=== PATIENT | male | born 1985 | race Caucasian/White ===

== ENCOUNTER 2020-02-05 14:24 | Inpatient (IN) | payer OTHER ==
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
[2020-02-05 15:22] VITALS: BMI 21.7
--- NOTE | 2020-02-05 16:47 | HP ---
"COWS - Scale Resting Pulse: 1= [place] 81-100 Sweatin=Flushed/Facial Moisture Restless Observation: 1= Difficult to Sit Still Pupil Size: 1= Pupils >than Normal Bone or Joint Aches: 2= Severe Diffuse Aches Runny Nose/ Eye Tearin= Runny Nose/Eyes GI Upset > 30mins: 2= Nausea/Diarrhea Tremor Observation: 1= Tremor [place], Not Seen Yawning Observation: 0= None Anxiety or Irritability: 2=Irritable/Anxious Goose Flesh Skin: 0=Smooth Skin COWS Score: 14 CIWA Score Nausea/Vomitin-Mild Nausea/No Vomiting Muscle Tremors: None Anxiety: 4-Mod. Anxious/Guarded Agitation: 4-Moderately Restless Paroxysmal Sweats: 1-Minimal Palms Moist Orientation: 0-Oriented Tacttile Disturbances: 0-None Auditory Disturbances: 2-Mild Harshness/Frighten Visual Disturbances: 2-Mild Sensitivity Headache: 3-Moderate CIWA-Ar Total Score: 17 - Admission Criteria OASAS Guidelines: Admission for Medically Managed Detox: Requires at least one of the followin. CIWA greater than 12 2. Seizures within the past 24 hours 3. Delirium tremens within the past 24 hours 4. Hallucinations within the past 24 hours 5. Acute intervention needed for co occurring medical disorder 6. Acute intervention needed for co occurring psychiatric disorder 7. Severe withdrawal that cannot be handled at a lower level of care (continued vomiting, continued diarrhea, abnormal vital signs) requiring intravenous medication and/or fluids 8. Admission ROS [facility] Allergies/Adverse Reactions: Allergies Allergy/AdvReac Type Severity Reaction Status Date / Time chlordiazepoxide Allergy Verified 02/05/20 18:00 [From Librium] Penicillins Allergy Verified 02/05/20 17:59 History of Present Illness: This report was requested by: Yasmin Loya | Reference #: [id number] Others' Prescriptions Patient Name: Anton Colunga Date: 1985 Address: [address] [place] [id number] Sex: Male Rx Written Rx Dispensed Drug Quantity Days Supply Prescriber Name Payment Method Dispenser 06/11/2019 06/11/2019 lorazepam 1 mg tablet 16 4 [facility] Patient Name: Anton Colunga Date: 1985 Address: [address] [place] [id number] Sex: Male Rx Written Rx Dispensed Drug Quantity Days Supply Prescriber Name Payment Method Dispenser 07/08/2019 07/11/2019 buprenorphine-naloxone 8-2 mg sl film 20 10 Mala Pedraza NP On License Of [facility] Patient Name: Anton Colunga Date: 1985 Address: [address] [place] [address] Sex: Male Rx Written Rx Dispensed Drug Quantity Days Supply Prescriber Name Payment Method Dispenser 01/16/2020 01/16/2020 buprenorphine-naloxone 8-2 mg sl film 14 14 Sai Marcum MD Medicaid [id number] 05/31/2019 06/01/2019 buprenorphine-naloxone 8-2 mg sl film 60 30 Peyton Barrios C Medicaid [facility] #[id number] 04/04/2019 04/07/2019 buprenorphine-naloxone 8-2 mg sl film 60 30 Violette Hamilton Medicaid [facility] #[id number] 02/27/2019 02/28/2019 buprenorphine-naloxone 8-2 mg sl film 60 30 Scar Lindsay Medicaid [facility] #[id number] Patient Name: Anton Colunga Date: 1985 Address: [place] [address] Sex: Male Rx Written Rx Dispensed Drug Quantity Days Supply Prescriber Name Payment Method Dispenser 08/21/2019 08/21/2019 buprenorphine-naloxone 4-1 mg sl film 30 30 Mala Pedraza NP Medicaid [facility] 08/21/2019 08/21/2019 buprenorphine-naloxone 8-2 mg sl film 30 30 Mala Pedraza NP [facility] 07/18/2019 07/18/2019 buprenorphine-naloxone 8-2 mg sl film 60 30 Vj Richardson MD Medicaid [facility] 34 y.o. male requesting detox from heroin use , reports detox [facility] 1 mo ago ( [facility] ) , prior to which he was in [facility] x 3 mo until September 2019 , sober until November 2019 , relapsed w/ work . heroin iv 1 bundle /day IV in UE , no abscess , latest use was yesterday . heroin use since age 24 , longest sobriety Jun - November 2019 . OD x once 4 yrs ago , has Narcan at home . xanax - 3-5 mg /d since 30 , daily use no seizures , latest use yesterday alcohol 1 pint daily x 3 years , denies seizures / blackouts , latest use yesterday , has had a fall in the past , no injuries . denies other illicits tobacco - 1 ppd requesting nrt w/ gum allergies : PCN , LIBRIUM ( RASH ) PMHX asthma respiclick ( has his own ) PSHx : c-sp , orif r wrist , r ankle , r vth finger , tonsillectomy , eric inguinal hernia PSych : depression on effexor Exam Limitations: Clinical Condition - Review of Systems Constitutional: Loss of Appetite EENT: reports: Other (s/p fall [address] [facility] no frx per pt . r eye hit on bathroom stall ( slip an dfall on wet floor )) Respiratory: reports: No Symptoms reported Cardiac: reports: No Symptoms Reported GI: reports: Diarrhea, Nausea, Poor Appetite, Abdominal cramping : reports: No Symptoms Reported Musculoskeletal: reports: Back Pain, Muscle Pain, Neck Pain Integumentary: reports: See HPI, Bruising (R side of face), Other (IV use) Neuro: reports: Headache Endocrine: reports: No Symptoms Reported Hematology: reports: No Symptoms Reported Psychiatric: reports: Orientated x3, Agitated, Anxious Patient History - Smoking Cessation Smoking history: Current every day smoker Have you smoked in the past 12 months: Yes Hx Chewing Tobacco Use: No Initiated information on smoking cessation: Yes 'Breaking Loose' booklet given: 02/05/20 - Substances abused Heroin Substance route: Injection Frequency: Daily Amount used: 10BAGS Age of first use: 24 Date of last use: 02/04/20 Alprazolam (Xanax) Substance route: Oral Frequency: Daily Amount used: 5MG Age of first use: 27 Date of last use: 02/04/20 Admission Physical Exam S - Vital Signs Vital Signs: Vital Signs - 24 hr 02/05/20 15:21 Temperature 98 F Pulse Rate 98 H Respiratory 18 Rate Blood Pressure 116/79 - Physical General Appearance: Yes: Severe Distress, Thin, Tremorous, Irritable, Anxious HEENTM: Yes: EOMI, Hearing grossly Normal, Normocephalic, Normal Voice, Other (right periorbital ecchymosis , right eyebrow w/ sutures , right conjunctival hemorrhage) Respiratory: Yes: Chest Non-Tender, Lungs Clear, Normal Breath Sounds, No Respiratory Distress, No Accessory Muscle Use Neck: Yes: No masses,lesions,Nodules, Trachea in good position Cardiology: Yes: Regular Rhythm, Regular Rate, S1, S2, Tachycardia Abdominal: Yes: Non Tender, Flat, Soft Back: Yes: Normal Inspection Musculoskeletal: Yes: Gait Steady Extremities: Yes: Normal Inspection, Normal Range of Motion, Non-Tender, Tremors Neurological: Yes: Fully Oriented, Alert, Motor Strength 5/5, Depressed Affect Integumentary: Yes: Warm, Track [place] (eric hands , ecchymosis R periorbital) - Diagnostic (1) Opioid dependence Current Visit: Yes Status: Chronic Qualifiers: Substance use status: in withdrawal Qualified Code(s): F11.23 - Opioid dependence with withdrawal (2) Sedative, hypnotic or anxiolytic abuse Current Visit: Yes Status: Chronic (3) Alcohol use disorder Current Visit: Yes Status: Chronic (4) Nicotine dependence Current Visit: Yes Status: Chronic Qualifiers: Nicotine product type: cigarettes Breathalyzer - Breathalyzer Breathalyzer: 0 Urine Drug Screen - Test Device Lot number: [id number] Expiration date: 09/30/21 - Control Is test valid?: Yes - Results Drug screen NEGATIVE: No Urine drug screen results: FEN-Fentanyl, MOP-Opiates, BZO-Benzodiazepines Inpatient Rehab Admission - Rehab Decision to Admit Inpatient rehab admission?: No"
[2020-02-05] MEDS ORDERED: MENTHOL/PHENOL 1 EACH UD MM PRN (17:51)
[2020-02-05] MEDS ORDERED: hydrOXYzine PAMOATE 25 MG CAPSULE (FP) PO PRN (17:51)
[2020-02-05] MEDS ORDERED: MAG HYDROX/AL HYDROX/SIMETH 30 ML UNIT-DOSE CUP PO PRN (17:51)
[2020-02-05] MEDS ORDERED: MAGNESIUM HYDROX 2400MG/30ML ORAL SUSPENSION 30 ML CUP PO PRN (17:51)
[2020-02-05] MEDS ORDERED: ACETAMINOPHEN 325 MG TABLET (FP) PO PRN ×2 (17:51)
[2020-02-05] MEDS ORDERED: BISMUTH SUBSALICYLATE 524 MG/30 ML UD PO PRN (17:51)
[2020-02-05] MEDS ORDERED: NICOTINE POLACRILEX 2 MG GUM BUC PRN (17:51)
[2020-02-05] MEDS ORDERED: METHOCARBAMOL 500 MG TABLET PO PRN (17:51)
[2020-02-05] MEDS ORDERED: MAGNESIUM CITRATE 300 ML BOTTLE PO PRN (17:51)
[2020-02-05] MEDS ORDERED: IBUPROFEN 400 MG TABLET (FP) PO PRN (17:51)
[2020-02-05] MEDS ORDERED: chlordiazePOXIDE HCL 25 MG CAPSULE PO ONE (17:56)
[2020-02-05] MEDS ORDERED: chlordiazePOXIDE HCL 25 MG CAPSULE PO PRN (17:56)
[2020-02-05] MEDS ORDERED: diazePAM 5 MG TABLET PO PRN (18:03)
[2020-02-05] MEDS ORDERED: ALBUTEROL SO4 HFA INHALER IH PRN (18:09)
[2020-02-05] MEDS ORDERED: METHADONE HCL 10 MG TABLET (FOR DETOX USE ONLY) PO ONE (18:15)
[2020-02-05] MEDS ORDERED: diazePAM 5 MG TABLET PO ONE (18:15)
[2020-02-05] MEDS: MELATONIN 5 MG TABLETS PO SCH (21:49)
[2020-02-05] MEDS: GABAPENTIN 300 MG CAPSULE PO SCH (21:49)
[2020-02-05] MEDS: diazePAM 5 MG TABLET PO SCH (21:49)
[2020-02-05] MEDS: THIAMINE HCL 100 MG TABLET (FP) PO SCH (21:49)
[2020-02-05] MEDS ORDERED: chlordiazePOXIDE HCL 25 MG CAPSULE PO SCH (23:00)
[2020-02-06] MEDS: GABAPENTIN 300 MG CAPSULE PO SCH ×3 (06:17→21:36)
[2020-02-06] MEDS ORDERED: METHADONE HCL 10 MG TABLET (FOR DETOX USE ONLY) ONE (08:43)
[2020-02-06] MEDS ORDERED: METHADONE HCL 5 MG TABLET (FOR DETOX USE ONLY) ONE (08:43)
[2020-02-06] MEDS ORDERED: METHADONE (DETOX) 20 MG, METHADONE (DETOX) 5 MG PO ONE (10:00)
[2020-02-06] MEDS: PRENATAL VITAMINS W/ FOLIC ACID TABLET (FP) PO SCH (10:09)
[2020-02-06] MEDS: diazePAM 5 MG TABLET PO SCH ×4 (10:09→21:36)
[2020-02-06 11:41] LABS: HEMATOCRIT 39.1 % (35.4-49); HEMOGLOBIN 12.9 GM/dL (11.7-16.9); MCH 29.3 pg (25.7-33.7); MCHC 33.1 g/dl (32.0-35.9); MEAN CELL VOLUME 88.5 fl (80-96); MEAN PLT VOLUME 9.2 fl (7.5-11.1); PLATELET COUNT 297 K/MM3 (134-434); RBC 4.42 M/mm3 (4.00-5.60); RDW 13.9 % (11.9-15.9); WHITE BLOOD COUNT 4.2 K/mm3 (4.0-10.0)
[2020-02-06 11:46] LABS: ALBUMIN 3.4 g/dl (3.4-5.0); BLOOD UREA NITROGEN 16.5 mg/dL (7-18); CALCIUM 8.8 mg/dL (8.5-10.1); POTASSIUM 4.3 mmol/L (3.5-5.1)
[2020-02-06 11:49] LABS: BILIRUBIN,TOTAL 0.6 mg/dL (0.2-1); CREATININE 0.9 mg/dL (0.55-1.3); TOT PROT 6.6 g/dl (6.4-8.2)
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
--- NOTE | 2020-02-06 13:32 | PN ---
[facility] CIWA - CIWA Score Nausea/Vomitin-No Nausea/No Vomiting Muscle Tremors: 3 Anxiety: 2 Agitation: 2 Paroxysmal Sweats: 3 Orientation: 0-Oriented Tacttile Disturbances: 0-None Auditory Disturbances: 0-None Visual Disturbances: 0-None Headache: 0-None Present CIWA-Ar Total Score: 10 BHS COWS - Scale Resting Pulse: 1= [place] 81-100 Sweatin= Chills/Flushing Restless Observation: 1= Difficult to Sit Still Pupil Size: 0= Normal to Room Light Bone or Joint Aches: 1= Mild Discomfort Runny Nose/ Eye Tearin= Nasal Congestion GI Upset > 30mins: 0= None Tremor Observation of Outstretched Hands: 1= Tremor [place], Not Seen Yawning Observation: 2= >3x During Session Anxiety or Irritability: 2=Irritable/Anxious Goose Flesh Skin: 0=Smooth Skin COWS Score: 10 S Progress Note (SOAP) Subjective: sweats shakes body aches restless interrupted sleep Objective: 02/06/20 13:30 Vital Signs Temperature 97.2 F L 02/06/20 09:27 Pulse Rate 83 02/06/20 09:27 Respiratory Rate 18 02/06/20 09:27 Blood Pressure 119/67 02/06/20 09:27 O2 Sat by Pulse Oximetry (%) 100 02/06/20 09:27 Laboratory Tests 02/06/20 02/06/20 02/06/20 08:00 08:00 08:00 WBC 4.2 RBC 4.42 Hgb 12.9 Hct 39.1 MCV 88.5 MCH 29.3 MCHC 33.1 RDW 13.9 Plt Count 297 MPV 9.2 Sodium 138 Potassium 4.3 Chloride 105 Carbon Dioxide 28 Anion Gap 6 L BUN 16.5 Creatinine 0.9 Est GFR (CKD-EPI)AfAm 130.52 Est GFR (CKD-EPI)NonAf 112.62 Random Glucose 88 Calcium 8.8 Total Bilirubin 0.6 AST 11 L ALT 13 Alkaline Phosphatase 64 Total Protein 6.6 Albumin 3.4 Syphilis Serology Non-reactive aaox3 ambulating no acute distress Assessment: 02/06/20 13:31 withdrawals right eye bruising around the emir-orbital and stitches to right eyebrow noted. pt state he had a fall a week ago and this was the result. Pt is able to see no blurred vision, no eyeball pain. Plan: continue detox increase fluids
[2020-02-06] MEDS: VENLAFAXINE HCL 150 MG E.R. CAPSULE PO SCH (14:23)
--- NOTE | 2020-02-06 15:47 | EKG ---
Test Reason : Blood Pressure : / mmHG Vent. Rate : 073 BPM Atrial Rate : 073 BPM P-R Int : 108 ms QRS Dur : 088 ms QT Int : 364 ms P-R-T Axes : 070 080 071 degrees QTc Int : 401 ms SINUS RHYTHM WITH SHORT VA OTHERWISE NORMAL ECG NO PREVIOUS ECGS AVAILABLE Confirmed by LUCERO PRIEST, ANIBAL ([id number]) on 02/06/2020 3:46:57 PM Referred By: Confirmed By:ANIBAL BARKER MD
[2020-02-06] MEDS: THIAMINE HCL 100 MG TABLET (FP) PO SCH (21:36)
[2020-02-06] MEDS: MELATONIN 5 MG TABLETS PO SCH (21:37)
[2020-02-07] MEDS ORDERED: chlordiazePOXIDE HCL 25 MG CAPSULE PO SCH (05:00)
[2020-02-07] MEDS: GABAPENTIN 300 MG CAPSULE PO SCH ×3 (05:34→22:16)
[2020-02-07] MEDS: diazePAM 5 MG TABLET PO SCH ×3 (05:35→22:16)
[2020-02-07] MEDS ORDERED: METHADONE HCL 10 MG TABLET (FOR DETOX USE ONLY) PO ONE (10:00)
[2020-02-07] MEDS: PRENATAL VITAMINS W/ FOLIC ACID TABLET (FP) PO SCH (10:56)
[2020-02-07] MEDS: VENLAFAXINE HCL 150 MG E.R. CAPSULE PO SCH (10:56)
[2020-02-07] MEDS: NICOTINE 21 MG/24 HOURS TOPICAL PATCH TD SCH (11:18)
--- NOTE | 2020-02-07 15:19 | PN ---
[facility] CIWA - CIWA Score Nausea/Vomitin-No Nausea/No Vomiting Muscle Tremors: None Anxiety: 4-Mod. Anxious/Guarded Agitation: 3 Paroxysmal Sweats: 2 Orientation: 0-Oriented Tacttile Disturbances: 2-Mild Itch/Numbness/Burn Auditory Disturbances: 0-None Visual Disturbances: 0-None Headache: 0-None Present CIWA-Ar Total Score: 11 S COWS - Scale Resting Pulse: 0= [place] 80 or Below Sweatin= Chills/Flushing Restless Observation: 1= Difficult to Sit Still Pupil Size: 0= Normal to Room Light Bone or Joint Aches: 2= Severe Diffuse Aches Runny Nose/ Eye Tearin= None GI Upset > 30mins: 0= None Tremor Observation of Outstretched Hands: 0= None Yawning Observation: 1= 1-2x During Session Anxiety or Irritability: 2=Irritable/Anxious Goose Flesh Skin: 0=Smooth Skin COWS Score: 7 S Progress Note (SOAP) Subjective: Sweating, Anxious, Body Aches. Objective: Patient A & O X 3, Observed Ambulating on Detox Unit Unassisted. In No Acute Distress. 02/07/20 15:18 Vital Signs Temperature 97.1 F L 02/07/20 12:43 Pulse Rate 63 02/07/20 12:43 Respiratory Rate 16 02/07/20 12:43 Blood Pressure 147/100 02/07/20 12:43 O2 Sat by Pulse Oximetry (%) 98 02/07/20 12:43 Laboratory Tests 02/05/20 02/06/20 02/06/20 18:30 08:00 08:00 WBC 4.2 RBC 4.42 Hgb 12.9 Hct 39.1 MCV 88.5 MCH 29.3 MCHC 33.1 RDW 13.9 Plt Count 297 MPV 9.2 Sodium Potassium Chloride Carbon Dioxide Anion Gap BUN Creatinine Est GFR (CKD-EPI)AfAm Est GFR (CKD-EPI)NonAf Random Glucose Calcium Total Bilirubin AST ALT Alkaline Phosphatase Total Protein Albumin Syphilis Serology Non-reactive COVID-19 (JASSON) Not detected 02/06/20 08:00 WBC RBC Hgb Hct MCV MCH MCHC RDW Plt Count MPV Sodium 138 Potassium 4.3 Chloride 105 Carbon Dioxide 28 Anion Gap 6 L BUN 16.5 Creatinine 0.9 Est GFR (CKD-EPI)AfAm 130.52 Est GFR (CKD-EPI)NonAf 112.62 Random Glucose 88 Calcium 8.8 Total Bilirubin 0.6 AST 11 L ALT 13 Alkaline Phosphatase 64 Total Protein 6.6 Albumin 3.4 Syphilis Serology COVID-19 (JASSON) Lab Results noted. Assessment: 02/07/20 15:19 WITHDRAWAL SYMPTOMS. Plan: Continue Detox.
[2020-02-07] MEDS: MELATONIN 5 MG TABLETS PO SCH (22:16)
[2020-02-07] MEDS: THIAMINE HCL 100 MG TABLET (FP) PO SCH (22:16)
[2020-02-08] MEDS ORDERED: chlordiazePOXIDE HCL 10 MG CAPSULE PO PRN
[2020-02-08] MEDS ORDERED: chlordiazePOXIDE HCL 10 MG CAPSULE PO SCH (05:00)
[2020-02-08] MEDS: diazePAM 5 MG TABLET PO SCH ×2 (05:56→17:11)
[2020-02-08] MEDS: GABAPENTIN 300 MG CAPSULE PO SCH ×3 (05:56→22:42)
[2020-02-08] MEDS ORDERED: METHADONE HCL 10 MG TABLET (FOR DETOX USE ONLY) ONE (09:57)
[2020-02-08] MEDS ORDERED: METHADONE HCL 5 MG TABLET (FOR DETOX USE ONLY) ONE (09:57)
[2020-02-08] MEDS ORDERED: METHADONE (DETOX) 10 MG, METHADONE (DETOX) 5 MG PO ONE (10:00)
[2020-02-08] MEDS: PRENATAL VITAMINS W/ FOLIC ACID TABLET (FP) PO SCH (10:58)
[2020-02-08] MEDS: VENLAFAXINE HCL 150 MG E.R. CAPSULE PO SCH (10:58)
[2020-02-08] MEDS: NICOTINE 21 MG/24 HOURS TOPICAL PATCH TD SCH (10:59)
--- NOTE | 2020-02-08 16:42 | PN ---
[facility] CIWA - CIWA Score Nausea/Vomitin-No Nausea/No Vomiting Muscle Tremors: 1-None Visible, but [place] Anxiety: 2 Agitation: 2 Paroxysmal Sweats: 2 Orientation: 0-Oriented Tacttile Disturbances: 0-None Auditory Disturbances: 0-None Visual Disturbances: 0-None Headache: 0-None Present CIWA-Ar Total Score: 7 BHS COWS - Scale Resting Pulse: 0= [place] 80 or Below Sweatin= Chills/Flushing Restless Observation: 0= Sits Still Pupil Size: 0= Normal to Room Light Bone or Joint Aches: 1= Mild Discomfort Runny Nose/ Eye Tearin= Nasal Congestion GI Upset > 30mins: 1= Stomach Cramp Tremor Observation of Outstretched Hands: 1= Tremor [place], Not Seen Yawning Observation: 0= None Anxiety or Irritability: 2=Irritable/Anxious Goose Flesh Skin: 0=Smooth Skin COWS Score: 7 S Progress Note (SOAP) Subjective: Chills, stomachache. Patient noted with redness and blood shot red eye along with sutures in right eyebrow stating he was high on drugs and fell. He reports having workup including CT scan of head/face at [facility] in and the scans didn't show any fx/injury. Also had sutures to right eyebrow placed either on 01/28 or 01/29 as per patient. Objective: 02/08/20 16:43 Last Vital Signs Temp Pulse Resp BP Pulse Ox 97.2 F L 67 18 116/62 97 02/08/20 12:58 02/08/20 12:58 02/08/20 12:58 02/08/20 12:58 02/08/20 12:58 ROS: denies any vision problems Face: Eyes: periorbital erythema under eyes sutures intact to right eyebrow right scleral erythema/blood shot to right inner canthus of eye, no drainage or discharge noted Laboratory Tests 02/05/20 02/06/20 02/06/20 18:30 08:00 08:00 WBC 4.2 RBC 4.42 Hgb 12.9 Hct 39.1 MCV 88.5 MCH 29.3 MCHC 33.1 RDW 13.9 Plt Count 297 MPV 9.2 Sodium Potassium Chloride Carbon Dioxide Anion Gap BUN Creatinine Est GFR (CKD-EPI)AfAm Est GFR (CKD-EPI)NonAf Random Glucose Calcium Total Bilirubin AST ALT Alkaline Phosphatase Total Protein Albumin Syphilis Serology Non-reactive COVID-19 (JASSON) Not detected 02/06/20 08:00 WBC RBC Hgb Hct MCV MCH MCHC RDW Plt Count MPV Sodium 138 Potassium 4.3 Chloride 105 Carbon Dioxide 28 Anion Gap 6 L BUN 16.5 Creatinine 0.9 Est GFR (CKD-EPI)AfAm 130.52 Est GFR (CKD-EPI)NonAf 112.62 Random Glucose 88 Calcium 8.8 Total Bilirubin 0.6 AST 11 L ALT 13 Alkaline Phosphatase 64 Total Protein 6.6 Albumin 3.4 Syphilis Serology COVID-19 (JASSON) Labs reviewed Assessment: 02/08/20 16:45 Withdrawal sxs Noted with right corneal abrasion and sutures to right eyebrow Plan: Continue detox Encourage PO water hydration Right corneal abrasion: start cipro ophthalmic soln 0.3% q6hr while awake x 7 days, instructed to follow up with PCP and Anode Adjuster post discharge Sutures to right eyebrow: needs removal tomorrow or CELINE
[2020-02-08] MEDS: MELATONIN 5 MG TABLETS PO SCH (22:42)
[2020-02-08] MEDS: CIPROFLOXACIN HCL 0.3% OPHTH 2.5ML BOTTLE OD SCH (22:42)
[2020-02-08] MEDS: THIAMINE HCL 100 MG TABLET (FP) PO SCH (22:42)
[2020-02-09] MEDS ORDERED: chlordiazePOXIDE HCL 10 MG CAPSULE PO SCH (05:00)
[2020-02-09 05:46] VITALS: BP 104/62; PULSE 64; TEMP 97.5
[2020-02-09] MEDS ORDERED: diazePAM 5 MG TABLET PO ONE (06:00)
[2020-02-09] MEDS: GABAPENTIN 300 MG CAPSULE PO SCH (07:00)
[2020-02-09] MEDS: CIPROFLOXACIN HCL 0.3% OPHTH 2.5ML BOTTLE OD SCH ×2 (07:00→10:59)
[2020-02-09] MEDS ORDERED: METHADONE HCL 10 MG TABLET (FOR DETOX USE ONLY) PO ONE (10:00)
[2020-02-09] MEDS: PRENATAL VITAMINS W/ FOLIC ACID TABLET (FP) PO SCH (10:58)
[2020-02-09] MEDS: NICOTINE 21 MG/24 HOURS TOPICAL PATCH TD SCH (10:58)
[2020-02-09] MEDS: VENLAFAXINE HCL 150 MG E.R. CAPSULE PO SCH (10:59)
--- NOTE | 2020-02-09 11:14 | PN ---
[facility] CIWA - CIWA Score Nausea/Vomitin-No Nausea/No Vomiting Muscle Tremors: 1-None Visible, but [place] Anxiety: 1-Mildly Anxious Agitation: 0-Normal Activity Paroxysmal Sweats: No Perspiration Orientation: 0-Oriented Tacttile Disturbances: 0-None Auditory Disturbances: 0-None Visual Disturbances: 0-None Headache: 0-None Present CIWA-Ar Total Score: 2 [facility] COWS - Scale Resting Pulse: 1= [place] 81-100 Sweatin= No chills or [place] Restless Observation: 0= Sits Still Pupil Size: 0= Normal to Room Light Bone or Joint Aches: 0= None Runny Nose/ Eye Tearin= None GI Upset > 30mins: 0= None Tremor Observation of Outstretched Hands: 0= None Yawning Observation: 0= None Anxiety or Irritability: 1=Feels Anxious/Irritable Goose Flesh Skin: 0=Smooth Skin COWS Score: 2 [facility] Progress Note (SOAP) Subjective: I feel fine Objective: 02/09/20 11:13 Vital Signs Temperature 97.5 F L 02/09/20 05:27 Pulse Rate 64 02/09/20 05:27 Respiratory Rate 16 02/09/20 05:27 Blood Pressure 104/62 02/09/20 05:27 O2 Sat by Pulse Oximetry (%) 96 02/09/20 05:27 aaox3 ambulating no acute distress Assessment: 02/09/20 11:13 no s/s of withdrawals noted Plan: complete detox d/c today
--- NOTE | 2020-02-09 11:17 | DS ---
[facility] Detox Discharge Summary Admission Date: 02/05/20 Discharge Date: 02/09/20 - History Present History: Alcohol Dependence - Physical Exam Results Vital Signs: Vital Signs Temperature 97.5 F L 02/09/20 05:27 Pulse Rate 64 02/09/20 05:27 Respiratory Rate 16 02/09/20 05:27 Blood Pressure 104/62 02/09/20 05:27 O2 Sat by Pulse Oximetry (%) 96 02/09/20 05:27 Pertinent Admission Physical Exam Findings: Vital Signs Temperature 97.5 F L 02/09/20 05:27 Pulse Rate 64 02/09/20 05:27 Respiratory Rate 16 02/09/20 05:27 Blood Pressure 104/62 02/09/20 05:27 O2 Sat by Pulse Oximetry (%) 96 02/09/20 05:27 Laboratory Tests 02/05/20 02/06/20 02/06/20 18:30 08:00 08:00 WBC 4.2 RBC 4.42 Hgb 12.9 Hct 39.1 MCV 88.5 MCH 29.3 MCHC 33.1 RDW 13.9 Plt Count 297 MPV 9.2 Sodium Potassium Chloride Carbon Dioxide Anion Gap BUN Creatinine Est GFR (CKD-EPI)AfAm Est GFR (CKD-EPI)NonAf Random Glucose Calcium Total Bilirubin AST ALT Alkaline Phosphatase Total Protein Albumin Syphilis Serology Non-reactive COVID-19 (JASSON) Not detected 02/06/20 08:00 WBC RBC Hgb Hct MCV MCH MCHC RDW Plt Count MPV Sodium 138 Potassium 4.3 Chloride 105 Carbon Dioxide 28 Anion Gap 6 L BUN 16.5 Creatinine 0.9 Est GFR (CKD-EPI)AfAm 130.52 Est GFR (CKD-EPI)NonAf 112.62 Random Glucose 88 Calcium 8.8 Total Bilirubin 0.6 AST 11 L ALT 13 Alkaline Phosphatase 64 Total Protein 6.6 Albumin 3.4 Syphilis Serology COVID-19 (JASSON) aaox3 ambulating no acute distress - Treatment Hospital Course: Detox Protocol Followed, Detoxed Safely, Responded well, Discharged Condition Good, Rehab Referral Accepted - Medication Discharge Medications: Ambulatory Orders Albuterol Sulfate Inhaler - [Ventolin Hfa Inhaler -] 2 inh PO Q6H 02/05/20 Gabapentin [Neurontin] 300 mg PO TID 02/05/20 Venlafaxine HCl [Effexor -] 150 mg PO DAILY 02/05/20 - Diagnosis (1) Alcohol dependence, uncomplicated Current Visit: Yes Status: Chronic (2) Sedative, hypnotic or anxiolytic abuse Current Visit: Yes Status: Chronic (3) Substance induced mood disorder Current Visit: Yes Status: Acute (4) Substance-induced sleep disorder Current Visit: Yes Status: Acute (5) Uncomplicated opioid dependence Current Visit: Yes Status: Acute (6) Asthma Current Visit: Yes Status: Chronic Qualifiers: Asthma severity: mild Asthma complication type: uncomplicated (7) MDD (major depressive disorder), recurrent episode, mild Current Visit: Yes Status: Chronic (8) Nicotine dependence Current Visit: Yes Status: Chronic Qualifiers: Nicotine product type: cigarettes Substance use status: uncomplicated Qualified Code(s): F17.210 - Nicotine dependence, cigarettes, uncomplicated (9) Opioid dependence Current Visit: Yes Status: Chronic Qualifiers: Substance use status: in withdrawal Qualified Code(s): F11.23 - Opioid dependence with withdrawal (10) Laceration of right eyebrow without complication Current Visit: Yes Status: Acute Qualifiers: Encounter type: initial encounter Qualified Code(s): S01.111A - Laceration without foreign body of right eyelid and periocular area, initial encounter - AMA Did Patient Leave Against Medical Advice: No
[2020-02-10] MEDS ORDERED: chlordiazePOXIDE HCL 10 MG CAPSULE PO ONE (05:00)
[2020-02-10] MEDS ORDERED: METHADONE HCL 5 MG TABLET (FOR DETOX USE ONLY) PO ONE (06:00)
== END 2020-02-09 13:00 | disposition home or self-care (01) | DRG 773 ==
LOC: YASAS 14:24 → Y6N 18:03
PROVIDERS: ADMIT Allergy & Immunology; ATTEND Allergy & Immunology
PROC: HZ2ZZZZ Detoxification Services for Substance Abuse Treatment (ICD-10-PCS; principal; 2020-02-05)
DX: F11.23 Opioid dependence with withdrawal (principal); F10.230 Alcohol dependence with withdrawal, uncomplicated; F13.20 Sedative, hypnotic or anxiolytic dependence, uncomplicated; F17.210 Nicotine dependence, cigarettes, uncomplicated; F33.0 Major depressive disorder, recurrent, mild; F19.282 Other psychoactive substance dependence with psychoactive substance-induced sleep disorder; F19.24 Other psychoactive substance dependence with psychoactive substance-induced mood disorder; J45.909 Unspecified asthma, uncomplicated; Z62.810 Personal history of physical and sexual abuse in childhood; S01.111D Laceration without foreign body of right eyelid and periocular area, subsequent encounter; S05.01XD Injury of conjunctiva and corneal abrasion without foreign body, right eye, subsequent encounter; W19.XXXD Unspecified fall, subsequent encounter; Z88.0 Allergy status to penicillin; Z88.5 Allergy status to narcotic agent
CPT/HCPCS: 36415; 80053; 85027; 86780; 93005; 93010; U0003

== ENCOUNTER 2020-04-06 20:19 | Inpatient (IN) | payer OTHER ==
--- NOTE | 2020-04-06 21:09 | HP ---
"COWS - Scale Resting Pulse: 1= [place] 81-100 Sweatin= Chills/Flushing Restless Observation: 5= Unable to Sit Still Pupil Size: 2= Moderately Dilated Bone or Joint Aches: 4=Acute Joint/Muscle Pain Runny Nose/ Eye Tearin= Nasal Congestion GI Upset > 30mins: 1= Stomach Cramp Tremor Observation: 2= Slight Tremor Visible Yawning Observation: 0= None Anxiety or Irritability: 2=Irritable/Anxious Goose Flesh Skin: 0=Smooth Skin COWS Score: 19 CIWA Score Nausea/Vomitin-No Nausea/No Vomiting Muscle Tremors: 4-Moderate,w/Arms Extend Anxiety: 4-Mod. Anxious/Guarded Agitation: 4-Moderately Restless Paroxysmal Sweats: 3 Orientation: 0-Oriented Tacttile Disturbances: 0-None Auditory Disturbances: 0-None Visual Disturbances: 0-None Headache: 3-Moderate CIWA-Ar Total Score: 18 - Admission Criteria OASAS Guidelines: Admission for Medically Managed Detox: Requires at least one of the followin. CIWA greater than 12 2. Seizures within the past 24 hours 3. Delirium tremens within the past 24 hours 4. Hallucinations within the past 24 hours 5. Acute intervention needed for co occurring medical disorder 6. Acute intervention needed for co occurring psychiatric disorder 7. Severe withdrawal that cannot be handled at a lower level of care (continued vomiting, continued diarrhea, abnormal vital signs) requiring intravenous medication and/or fluids 8. Patient presents the following: CIWA greater than 12 Admission Criteria Met: Admission criteria met Admitting History and Physical - Smoking History Smoking history: Current every day smoker Have you smoked in the past 12 months: Yes Aproximately how many cigarettes per day: 20 Admission ROS [facility] Chief Complaint: C/O WITHDRAWAL SX'S Allergies/Adverse Reactions: Allergies Allergy/AdvReac Type Severity Reaction Status Date / Time chlordiazepoxide Allergy Verified 04/06/20 21:11 [From Librium] Penicillins Allergy Verified 04/06/20 21:11 History of Present Illness: HERE FOR ALCOHOL, BENZO, OPI DETOX. CLIENT IS SELF REFERRED. KNOWN TO PROGRAM. LAST HERE 2 MONTHS AGO. REPORTS HE WAS DRUG FREE FOR ABOUT 2 WEEKS BEFORE RELASPING AGAIN. HE REPORTS DAILY HEROIN US VIA IV. LAST USE 1 NIGHT AGO. DENIES HX/O DRUG OVER DOSE. HE ALSO REPORTS REPORTS ALCOHOL ABUSE ALTERNATING DAYS WITH KLONOPINS ABUSE. DENIES HX/O SZ AND/OR BLACK OUTS. HE REPORTS BEING TERMINATED FROM SBX MGMT LAST MONTH DUE TO HIS CONTINUED USE OF ILLICIT SUBSTANCES. BROUGHT SOME SBX FROM THE STREETS 3 DAYS AGO 2/2 WITHDRAWAL SX'S AND HE COULD NOT GET HEROIN. HOMELESS, UNEMPLOYED, DENIES LEGALS. LIBRI[facility] ALLERGY REPORTED A RASH. CLIENT STATES HAS TAKEN VALIUM BEFORE W/O RXN Search Terms: mary colunga, 1985Search Date: 04/06/2020 21:05:44 PM The Drug Utilization Report below displays all of the controlled substance prescriptions, if any, that your patient has filled in the last twelve months. The information displayed on this report is compiled from pharmacy submissions to the Department, and accurately reflects the information as submitted by the pharmacies. This report was requested by: Zoe Chu | Reference #: [id number] You have not added a JULES number. Keeping your JULES number(s) up to date on the My JULES Numbers page will enable the separation of your prescriptions from others in the search results. Others' Prescriptions Patient Name: Mary ColungaBirth Date: 1985 Address: [address] [place] [id number]: Male Rx Written Rx Dispensed Drug Quantity Days Supply Prescriber Name Payment Method Dispenser 02/18/2020 02/23/2020 buprenorphine-naloxone 8-2 mg sl film 14 14 Max Kathleen Mph, RPA-C Medicaid [facility] #[id number] 01/16/2020 01/16/2020 buprenorphine-naloxone 8-2 mg sl film 14 14 Sai Marcum MD Medicaid [facility] #[id number] 05/31/2019 06/01/2019 buprenorphine-naloxone 8-2 mg sl film 60 30 Peyton Barrios C Medicaid [facility] #[id number] 04/04/2019 04/07/2019 buprenorphine-naloxone 8-2 mg sl film 60 30 Violette Hamilton Medicaid [facility] #[id number] Exam Limitations: No Limitations - Ebola screening Have you traveled outside of the country in the last 21 days: No Have you had contact with anyone from an Ebola affected area: No Have you been sick,other than usual withdrawal symptoms: No - Review of Systems Constitutional: Chills, Malaise, Night Sweats EENT: reports: Dental Problems (MISSING TEWETH) Respiratory: reports: Shortness of Breath (INTERMITTENT 2/2 ASTHMA) Cardiac: reports: No Symptoms Reported GI: reports: Nausea, Abdominal cramping : reports: No Symptoms Reported Musculoskeletal: reports: No Symptoms Reported Integumentary: reports: No Symptoms Reported Neuro: reports: Headache, Tremors Endocrine: reports: No Symptoms Reported Hematology: reports: No Symptoms Reported Psychiatric: reports: Orientated x3, Anxious Other Systems: Reviewed and Negative Patient History - Patient Medical History Hx Anemia: No Hx Asthma: Yes Hx Chronic Obstructive Pulmonary Disease (COPD): No Hx Cancer: No Hx Cardiac Disorders: No Hx Congestive Heart Failure: No Hx Hypertension: No Hx Hypercholesterolemia: No Hx Pacemaker: No HX Cerebrovascular Accident: No Hx Seizures: No Hx Dementia: No Hx Diabetes: No Hx Gastrointestinal Disorders: No Hx Liver Disease: No Hx Genitourinary Disorders: No Hx Sexually Transmitted Disorders: No Hx Renal Disease (ESRD): No Hx Thyroid Disease: No Hx Human Immunodeficiency Virus (HIV): No Hx Hepatitis C: No Hx Depression: Yes (EFFEXOR. LAST TAKEN 3 DAYS AGO) Hx Suicide Attempt: No Hx Bipolar Disorder: No Hx Schizophrenia: No Other Medical History: DENIES - Patient Surgical History Past Surgical History: No Hx Neurologic Surgery: No Hx Cataract Extraction: No Hx Cardiac Surgery: No Hx Lung Surgery: No Hx Breast Surgery: No Hx Breast Biopsy: No Hx Abdominal Surgery: No Hx Appendectomy: No Hx Cholecystectomy: No Hx Genitourinary Surgery: No Hx Section: No Hx Orthopedic Surgery: No Anesthesia Reaction: No - PPD History Previous Implant?: Yes Documented Results: Negative w/proof Implanted On Prior [facility] Admission?: Yes Date: 02/07/20 Results: 0MM PPD to be Administered?: No - Smoking Cessation Smoking history: Current every day smoker Have you smoked in the past 12 months: Yes Aproximately how many cigarettes per day: 20 Cigars Per Day: 0 Hx Chewing Tobacco Use: No Initiated information on smoking cessation: Yes 'Breaking Loose' booklet given: 04/06/20 - Substance & Tx. History Hx Alcohol Use: Yes Hx Substance Use: Yes Substance Use Type: Alcohol, Heroin, Tranquilizers (KLONOPINS) Hx Substance Use Treatment: Yes ([facility]) - Substances abused Heroin Substance route: Injection Frequency: Daily Amount used: 15 BAGS Age of first use: 24 Date of last use: 04/05/20 Alcohol Other (specify): VODKA Substance route: Oral Frequency: 3-6 times per week Amount used: 1-2 PINTS Age of first use: 30 Date of last use: 04/05/20 Benzodiazepine (Klonopin) Substance route: Oral Frequency: 3-6 times per week (3-4 X A WEEK) Amount used: 3 MG Admission Physical Exam [facility] - Physical General Appearance: Yes: Moderate Distress, Tremorous, Sweating, Anxious HEENTM: Yes: EOMI, Normocephalic, Normal Voice, ISSAC (DIALATED), Pharynx Normal Respiratory: Yes: Chest Non-Tender, Lungs Clear, Normal Breath Sounds, No Respiratory Distress, No Accessory Muscle Use Neck: Yes: No masses,lesions,Nodules, Trachea in good position Breast: Yes: Breasts Symetrical Cardiology: Yes: Regular Rhythm, Regular Rate, S1, S2 Abdominal: Yes: Non Tender, Surgical Scar Genitourinary: Yes: Within Normal Limits Back: Yes: Normal Inspection Musculoskeletal: Yes: full range of Motion, Gait Steady Extremities: Yes: Normal Range of Motion, Non-Tender, Tremors, Other (SX SCAR TO RIGHT WRIST AND LEFT INNER ANKLE) Neurological: Yes: Fully Oriented, Alert, Motor Strength 5/5 Integumentary: Yes: Clammy, Track [place] (TO BOTH HANDS), Other Lymphatic: Yes: Within Normal Limits - Diagnostic (1) Opioid dependence with withdrawal Status: Acute (2) Alcohol dependence with withdrawal, uncomplicated Status: Acute (3) Sedative, hypnotic or anxiolytic dependence, uncomplicated Status: Acute (4) Asthma Status: Chronic Qualifiers: Asthma severity: mild Asthma complication type: uncomplicated (5) Nicotine dependence Status: Chronic Qualifiers: Nicotine product type: cigarettes Substance use status: uncomplicated Qualified Code(s): F17.210 - Nicotine dependence, cigarettes, uncomplicated (6) Homeless Status: Acute Cleared for Admission [facility] - Detox or Rehab [facility] Level of Care: Medically Managed Detox Regimen/Protocol: Methadone/Valium Claeared for Rehab Admission: No Breathalyzer - Breathalyzer Breathalyzer: 0 Urine Drug Screen - Test Device Lot number: [id number] Expiration date: 09/30/21 - Control Is test valid?: Yes - Results Drug screen NEGATIVE: No Urine drug screen results: FEN-Fentanyl, MOP-Opiates, BZO-Benzodiazepines Inpatient Rehab Admission - Rehab Decision to Admit Inpatient rehab admission?: No"
[2020-04-06 21:11] VITALS: BMI 21.7
[2020-04-06] MEDS ORDERED: MENTHOL/PHENOL 1 EACH UD MM PRN (21:32)
[2020-04-06] MEDS ORDERED: MAGNESIUM CITRATE 300 ML BOTTLE PO PRN (21:32)
[2020-04-06] MEDS ORDERED: MAGNESIUM HYDROX 2400MG/30ML ORAL SUSPENSION 30 ML CUP PO PRN (21:32)
[2020-04-06] MEDS ORDERED: NALOXONE HCL 0.4 MG/ML VIAL IM PRN (21:32)
[2020-04-06] MEDS ORDERED: ACETAMINOPHEN 325 MG TABLET (FP) PO PRN ×2 (21:32)
[2020-04-06] MEDS ORDERED: IBUPROFEN 400 MG TABLET (FP) PO PRN (21:32)
[2020-04-06] MEDS ORDERED: ONDANSETRON *ODT* 4 MG TABLET SL PRN (21:32)
[2020-04-06] MEDS ORDERED: P-EPHED 60MG/TRIPROLIDI 2.5MG TABLET PO PRN (21:32)
[2020-04-06] MEDS ORDERED: cloNIDine HCL 0.1 MG TABLET PO PRN (21:32)
[2020-04-06] MEDS ORDERED: DICYCLOMINE HCL 10 MG CAPSULE PO PRN (21:32)
[2020-04-06] MEDS ORDERED: BISMUTH SUBSALICYLATE 524 MG/30 ML UD PO PRN (21:32)
[2020-04-06] MEDS ORDERED: MAG HYDROX/AL HYDROX/SIMETH 30 ML UNIT-DOSE CUP PO PRN (21:32)
[2020-04-06] MEDS ORDERED: hydrOXYzine PAMOATE 25 MG CAPSULE (FP) PO PRN (21:32)
[2020-04-06] MEDS ORDERED: METHADONE HCL 10 MG TABLET (FOR DETOX USE ONLY) PO ONE (22:30)
[2020-04-06] MEDS: METHOCARBAMOL 500 MG TABLET PO PRN (22:34)
[2020-04-06] MEDS: diazePAM 5 MG TABLET PO SCH (22:34)
[2020-04-06] MEDS: THIAMINE HCL 100 MG TABLET (FP) PO SCH (22:34)
[2020-04-06] MEDS: MELATONIN 5 MG TABLETS PO SCH (22:35)
[2020-04-07] MEDS: diazePAM 5 MG TABLET PO SCH ×4 (06:02→22:22)
[2020-04-07] MEDS ORDERED: METHADONE HCL 5 MG TABLET (FOR DETOX USE ONLY) ONE (09:54)
[2020-04-07] MEDS ORDERED: METHADONE HCL 10 MG TABLET (FOR DETOX USE ONLY) ONE (09:54)
[2020-04-07] MEDS ORDERED: METHADONE (DETOX) 20 MG, METHADONE (DETOX) 5 MG PO ONE (10:00)
--- NOTE | 2020-04-07 10:00 | CONSULT ---
[facility] Psychiatric Consult - Data Date of interview: 04/07/20 Admission source: Self-referred Identifying data: Mr Colunga is a 35 years old single male, unemployed, homeless seeking detox treatment for alcohol, opioid and benzodiazepine Substance Abuse History: Reports history of alcohol, heroin and klonopin ue. Refer to addiction counselor's summary for further information Medical History: Significant for bronchial asthma. Smokes cigarettes 1 ppd Psychiatric History: Patient is known for one previous admission to this facility. He was approached at bedside for psychiatric interview. Told check writer:" I'm not getting up. I don't want to see psychiatrist"
[2020-04-07] MEDS: METHOCARBAMOL 500 MG TABLET PO PRN (10:28)
[2020-04-07] MEDS: PRENATAL VITAMINS W/ FOLIC ACID TABLET (FP) PO SCH (10:29)
[2020-04-07] MEDS: NICOTINE 7 MG/24 HOURS TOPICAL PATCH TD SCH (10:30)
--- NOTE | 2020-04-07 11:25 | PN ---
S CIWA - CIWA Score Nausea/Vomitin-Mild Nausea/No Vomiting Muscle Tremors: 2 Anxiety: 4-Mod. Anxious/Guarded Agitation: 3 Paroxysmal Sweats: 1-Minimal Palms Moist Orientation: 0-Oriented Tacttile Disturbances: 0-None Auditory Disturbances: 0-None Visual Disturbances: 0-None Headache: 3-Moderate CIWA-Ar Total Score: 14 BHS COWS - Scale Resting Pulse: 0= [place] 80 or Below Sweatin= Chills/Flushing Restless Observation: 0= Sits Still Pupil Size: 1= Pupils >than Normal Bone or Joint Aches: 2= Severe Diffuse Aches Runny Nose/ Eye Tearin= None GI Upset > 30mins: 2= Nausea/Diarrhea Tremor Observation of Outstretched Hands: 2= Slight Tremor Visible Yawning Observation: 0= None Anxiety or Irritability: 2=Irritable/Anxious Goose Flesh Skin: 3=Piloerection COWS Score: 13 S Progress Note (SOAP) Subjective: 35 years old male was admitted on 04/06/20 for alcohol benzo opiate withdrawal sx management treating with valium and methadone detox regiments irritable agitative when carry conversation tremor body aches bmi 21.7 ensure 120 ml po tid with meals Objective: 04/07/20 11:26 Vital Signs - 24 hr 04/06/20 04/06/20 04/06/20 21:09 21:39 21:46 Temperature 97.6 F 97.6 F Pulse Rate 88 88 Respiratory 12 12 Rate Blood Pressure 131/73 131/73 O2 Sat by Pulse 99 Oximetry (%) 04/06/20 04/07/20 04/07/20 22:29 06:31 08:47 Temperature 97.3 F L 97.3 F L 7.9 F L Pulse Rate 98 H 72 64 Respiratory 18 18 18 Rate Blood Pressure 115/73 120/69 102/62 O2 Sat by Pulse 97 96 96 Oximetry (%) 04/07/20 11:26 lab pending Assessment: 04/07/20 11:26 alcohol benzo opiate withdrawal Plan: librium regiment
[2020-04-07 12:55] LABS: HEMATOCRIT 37.6 % (35.4-49); HEMOGLOBIN 12.6 GM/dL (11.7-16.9); MCH 28.5 pg (25.7-33.7); MCHC 33.5 g/dl (32.0-35.9); MEAN CELL VOLUME 85.1 fl (80-96); MEAN PLT VOLUME 8.2 fl (7.5-11.1); PLATELET COUNT 286 K/MM3 (134-434); RBC 4.42 M/mm3 (4.00-5.60); RDW 13.8 % (11.9-15.9)
[2020-04-07 12:57] LABS: POTASSIUM 4.2 mmol/L (3.5-5.1)
[2020-04-07 13:04] LABS: ALBUMIN 3.4 g/dl (3.4-5.0); BILIRUBIN,TOTAL 0.6 mg/dL (0.2-1); BLOOD UREA NITROGEN 17.5 mg/dL (7-18); CALCIUM 8.8 mg/dL (8.5-10.1); CREATININE 0.9 mg/dL (0.55-1.3); TOT PROT 6.5 g/dl (6.4-8.2)
[2020-04-07] MEDS: diazePAM 5 MG TABLET PO PRN (13:34)
[2020-04-07 14:52] LABS: PH,URINE 5.5 (5.0-8.0); URINE APPEARANCE CLEAR; URINE BILIRUBIN NEGATIVE (NEGATIVE); URINE COLOR YELLOW; URINE GLUCOSE (UA) NEGATIVE (NEGATIVE); URINE KETONE NEGATIVE (NEGATIVE); URINE LEUK ESTERASE NEGATIVE (NEGATIVE); URINE NITRITE NEGATIVE (NEGATIVE); URINE PROTEIN NEGATIVE (NEGATIVE); URINE UROBILINOGEN 0.2 mg/dL (0.2-1.0)
[2020-04-07] MEDS: NICOTINE POLACRILEX 2 MG GUM BUC PRN ×2 (17:48→22:24)
[2020-04-07] MEDS: THIAMINE HCL 100 MG TABLET (FP) PO SCH (22:22)
[2020-04-07] MEDS: MELATONIN 5 MG TABLETS PO SCH (22:22)
[2020-04-08] MEDS: diazePAM 5 MG TABLET PO SCH ×3 (05:31→22:28)
[2020-04-08] MEDS ORDERED: METHADONE HCL 10 MG TABLET (FOR DETOX USE ONLY) PO ONE (10:00)
[2020-04-08] MEDS: PRENATAL VITAMINS W/ FOLIC ACID TABLET (FP) PO SCH (10:06)
[2020-04-08] MEDS: NICOTINE 7 MG/24 HOURS TOPICAL PATCH TD SCH (10:06)
[2020-04-08] MEDS: diazePAM 5 MG TABLET PO PRN ×2 (10:08→17:42)
--- NOTE | 2020-04-08 11:22 | PN ---
[facility] CIWA - CIWA Score Nausea/Vomitin-No Nausea/No Vomiting Muscle Tremors: None Anxiety: 3 Agitation: 2 Paroxysmal Sweats: 3 Orientation: 0-Oriented Tacttile Disturbances: 0-None Auditory Disturbances: 0-None Visual Disturbances: 0-None Headache: 0-None Present CIWA-Ar Total Score: 8 BHS COWS - Scale Resting Pulse: 1= [place] 81-100 Sweatin= Chills/Flushing Restless Observation: 1= Difficult to Sit Still Pupil Size: 0= Normal to Room Light Bone or Joint Aches: 2= Severe Diffuse Aches Runny Nose/ Eye Tearin= None GI Upset > 30mins: 0= None Tremor Observation of Outstretched Hands: 0= None Yawning Observation: 1= 1-2x During Session Anxiety or Irritability: 2=Irritable/Anxious Goose Flesh Skin: 0=Smooth Skin COWS Score: 8 S Progress Note (SOAP) Subjective: c/o anxiety, sweats, muscle aches, and irritability. Objective: 04/08/20 11:20 Vital Signs 04/08/20 04/08/20 06:17 08:30 Temperature 97.3 F L 98.4 F Pulse Rate 71 92 H Respiratory 16 20 Rate Blood Pressure 121/74 118/73 O2 Sat by Pulse 97 Oximetry (%) Laboratory Last Values WBC 6.0 K/mm3 (4.0-10.0) 04/07/20 07:30 RBC 4.42 M/mm3 (4.00-5.60) 04/07/20 07:30 Hgb 12.6 GM/dL (11.7-16.9) 04/07/20 07:30 Hct 37.6 % (35.4-49) 04/07/20 07:30 MCV 85.1 fl (80-96) 04/07/20 07:30 MCH 28.5 pg (25.7-33.7) 04/07/20 07:30 MCHC 33.5 g/dl (32.0-35.9) 04/07/20 07:30 RDW 13.8 % (11.9-15.9) 04/07/20 07:30 Plt Count 286 K/MM3 (134-434) 04/07/20 07:30 MPV 8.2 fl (7.5-11.1) D 04/07/20 07:30 Sodium 139 mmol/L (136-145) 04/07/20 07:30 Potassium 4.2 mmol/L (3.5-5.1) 04/07/20 07:30 Chloride 105 mmol/L (98-107) 04/07/20 07:30 Carbon Dioxide 29 mmol/L (21-32) 04/07/20 07:30 Anion Gap 5 MMOL/L (8-16) L 04/07/20 07:30 BUN 17.5 mg/dL (7-18) 04/07/20 07:30 Creatinine 0.9 mg/dL (0.55-1.3) 04/07/20 07:30 Est GFR (CKD-EPI)AfAm 129.61 04/07/20 07:30 Est GFR (CKD-EPI)NonAf 111.83 04/07/20 07:30 Random Glucose 85 mg/dL (74-106) 04/07/20 07:30 Calcium 8.8 mg/dL (8.5-10.1) 04/07/20 07:30 Total Bilirubin 0.6 mg/dL (0.2-1) 04/07/20 07:30 AST 13 U/L (15-37) L 04/07/20 07:30 ALT 16 U/L (13-61) 04/07/20 07:30 Alkaline Phosphatase 68 U/L (45-117) 04/07/20 07:30 Total Protein 6.5 g/dl (6.4-8.2) 04/07/20 07:30 Albumin 3.4 g/dl (3.4-5.0) 04/07/20 07:30 Urine Color Yellow 04/07/20 12:00 Urine Appearance Clear 04/07/20 12:00 Urine pH 5.5 (5.0-8.0) 04/07/20 12:00 Ur Specific [place] 1.027 (1.010-1.035) 04/07/20 12:00 Urine Protein Negative (NEGATIVE) 04/07/20 12:00 Urine Glucose (UA) Negative (NEGATIVE) 04/07/20 12:00 Urine Ketones Negative (NEGATIVE) 04/07/20 12:00 Urine Blood Negative (NEGATIVE) 04/07/20 12:00 Urine Nitrite Negative (NEGATIVE) 04/07/20 12:00 Urine Bilirubin Negative (NEGATIVE) 04/07/20 12:00 Urine Urobilinogen 0.2 mg/dL (0.2-1.0) 04/07/20 12:00 Ur Leukocyte Esterase Negative (NEGATIVE) 04/07/20 12:00 Syphilis Serology Non-reactive (NONREACTIVE) 04/06/20 07:30 COVID-19 (JASSON) Not detected (Not Detected) 04/06/20 21:30 Labs noted. Assessment: 04/08/20 11:20 AOX3, in no acute respiratory distress. Full ROM, ambulating in the unit. Withdrawal symptoms. Plan: continue detox.
[2020-04-08] MEDS ORDERED: NICOTINE 14 MG/24 HOURS TOPICAL PATCH TD SCH (14:46)
[2020-04-08] MEDS: NICOTINE POLACRILEX 2 MG GUM BUC PRN (17:42)
[2020-04-08] MEDS: MELATONIN 5 MG TABLETS PO SCH (22:27)
[2020-04-08] MEDS: THIAMINE HCL 100 MG TABLET (FP) PO SCH (22:27)
[2020-04-09] MEDS ORDERED: diazePAM 5 MG TABLET PO SCH (06:00)
--- NOTE | 2020-04-09 09:24 | DS ---
[facility] Detox Discharge Summary Admission Date: 04/06/20 Discharge Date: 04/09/20 - History Present History: Opioid Dependence Additional Comments: HERE FOR ALCOHOL, BENZO, OPI DETOX. CLIENT IS SELF REFERRED. KNOWN TO PROGRAM. LAST HERE 2 MONTHS AGO. REPORTS HE WAS DRUG FREE FOR ABOUT 2 WEEKS BEFORE RELASPING AGAIN. HE REPORTS DAILY HEROIN US VIA IV. LAST USE 1 NIGHT AGO. DENIES HX/O DRUG OVER DOSE. HE ALSO REPORTS REPORTS ALCOHOL ABUSE ALTERNATING DAYS WITH KLONOPINS ABUSE. DENIES HX/O SZ AND/OR BLACK OUTS. HE REPORTS BEING TERMINATED FROM SBX MGMT LAST MONTH DUE TO HIS CONTINUED USE OF ILLICIT SUBSTANCES. BROUGHT SOME SBX FROM THE STREETS 3 DAYS AGO 2/2 WITHDRAWAL SX'S AND HE COULD NOT GET HEROIN. HOMELESS, UNEMPLOYED, DENIES LEGALS. LIBRIUM ALLERGY REPORTED A RASH. CLIENT STATES HAS TAKEN VALIUM BEFORE W/O RXN - Physical Exam Results Vital Signs: Vital Signs Temperature 97.3 F L 04/08/20 20:16 Pulse Rate 76 04/08/20 20:16 Respiratory Rate 17 04/08/20 20:16 Blood Pressure 112/66 04/08/20 20:16 O2 Sat by Pulse Oximetry (%) 97 04/08/20 20:16 Pertinent Admission Physical Exam Findings: PE Gnl: WDWN MS: anxious, agitated, wants to leave due to withdrawal symptoms of nausea, anxiety, sweats, aches, tremor. Motor: moves all limbs well Gait: steady Imp 1. Benzodiazepine use disorder 2. Opioid use disorder Plan 1. Pt insists on leaving states "I wish I didn't come in" "not ready" despite discussion about risks of relapse including but not limited to overdose and . Met with counselor Glenn. Pt will be discharged AMA. - Treatment Hospital Course: Detox Protocol Followed - Medication Discharge Medications: Ambulatory Orders Albuterol Sulfate Inhaler - [Ventolin Hfa Inhaler -] 2 inh PO Q6H 02/05/20 Gabapentin [Neurontin] 300 mg PO TID 02/05/20 Venlafaxine HCl [Effexor -] 150 mg PO DAILY 02/05/20 - Diagnosis (1) Opioid dependence with withdrawal Current Visit: Yes Status: Acute (2) Sedative, hypnotic or anxiolytic dependence, uncomplicated Current Visit: Yes Status: Acute - AMA Did Patient Leave Against Medical Advice: Yes
[2020-04-09] MEDS ORDERED: METHADONE (DETOX) 10 MG, METHADONE (DETOX) 5 MG PO ONE (10:00)
[2020-04-09 10:08] VITALS: BP 131/83; PULSE 93; TEMP 97.1
[2020-04-10] MEDS ORDERED: diazePAM 5 MG TABLET PO ONE (06:00)
[2020-04-10] MEDS ORDERED: METHADONE HCL 10 MG TABLET (FOR DETOX USE ONLY) PO ONE (10:00)
[2020-04-11] MEDS ORDERED: METHADONE HCL 5 MG TABLET (FOR DETOX USE ONLY) PO ONE (06:00)
== END 2020-04-09 09:18 | disposition left against medical advice (07) | DRG 770 ==
LOC: YASAS 20:19 → Y3N 21:28
PROVIDERS: ADMIT Allergy & Immunology; ATTEND Allergy & Immunology
PROC: HZ2ZZZZ Detoxification Services for Substance Abuse Treatment (ICD-10-PCS; principal; 2020-04-06)
DX: F10.230 Alcohol dependence with withdrawal, uncomplicated (principal); F11.23 Opioid dependence with withdrawal; F13.230 Sedative, hypnotic or anxiolytic dependence with withdrawal, uncomplicated; F17.210 Nicotine dependence, cigarettes, uncomplicated; F32.9 Major depressive disorder, single episode, unspecified; J45.909 Unspecified asthma, uncomplicated; Z88.8 Allergy status to other drugs, medicaments and biological substances; Z56.0 Unemployment, unspecified; Z59.0 Homelessness
CPT/HCPCS: 36415; 80053; 81003; 85027; 86780; C9803; U0003

== ENCOUNTER 2020-05-07 01:08 | Inpatient (IN) | payer OTHER ==
[2020-05-07 01:41] VITALS: BMI 21.9
[2020-05-07] MEDS ORDERED: MAGNESIUM CITRATE 300 ML BOTTLE PO PRN (01:49)
[2020-05-07] MEDS ORDERED: MAGNESIUM HYDROX 2400MG/30ML ORAL SUSPENSION 30 ML CUP PO PRN (01:49)
[2020-05-07] MEDS ORDERED: IBUPROFEN 400 MG TABLET (FP) PO PRN (01:49)
[2020-05-07] MEDS ORDERED: ONDANSETRON *ODT* 4 MG TABLET SL PRN (01:49)
[2020-05-07] MEDS ORDERED: NICOTINE POLACRILEX 2 MG GUM BUC PRN (01:49)
[2020-05-07] MEDS ORDERED: METHADONE HCL 10 MG TABLET (FOR DETOX USE ONLY) PO ONE (01:49)
[2020-05-07] MEDS ORDERED: ACETAMINOPHEN 325 MG TABLET (FP) PO PRN ×2 (01:49)
[2020-05-07] MEDS ORDERED: BISMUTH SUBSALICYLATE 524 MG/30 ML UD PO PRN (01:49)
[2020-05-07] MEDS ORDERED: MAG HYDROX/AL HYDROX/SIMETH 30 ML UNIT-DOSE CUP PO PRN (01:49)
[2020-05-07] MEDS ORDERED: MENTHOL/PHENOL 1 EACH UD MM PRN (01:49)
[2020-05-07] MEDS ORDERED: ALBUTEROL SO4 HFA INHALER IH PRN (01:54)
[2020-05-07] MEDS: cloNIDine HCL 0.1 MG TABLET PO PRN ×2 (02:55→19:47)
[2020-05-07] MEDS: METHOCARBAMOL 500 MG TABLET PO PRN (02:56)
[2020-05-07] MEDS: diazePAM 5 MG TABLET PO PRN ×3 (10:22→22:44)
[2020-05-07] MEDS: hydrOXYzine PAMOATE 25 MG CAPSULE (FP) PO PRN (10:22)
[2020-05-07] MEDS: NICOTINE 21 MG/24 HOURS TOPICAL PATCH TD SCH (10:22)
[2020-05-07] MEDS: PRENATAL VITAMINS W/ FOLIC ACID TABLET (FP) PO SCH (10:22)
[2020-05-07] MEDS: THIAMINE HCL 100 MG TABLET (FP) PO SCH (22:44)
[2020-05-07] MEDS: MELATONIN 5 MG TABLETS PO SCH (22:44)
[2020-05-08] MEDS: diazePAM 5 MG TABLET PO PRN ×4 (07:19→20:01)
[2020-05-08] MEDS ORDERED: METHADONE HCL 5 MG TABLET (FOR DETOX USE ONLY) ONE (08:54)
[2020-05-08] MEDS ORDERED: METHADONE HCL 10 MG TABLET (FOR DETOX USE ONLY) ONE (08:54)
[2020-05-08] MEDS ORDERED: METHADONE (DETOX) 20 MG, METHADONE (DETOX) 5 MG PO ONE (10:00)
[2020-05-08] MEDS: NICOTINE 21 MG/24 HOURS TOPICAL PATCH TD SCH (10:07)
[2020-05-08] MEDS: PRENATAL VITAMINS W/ FOLIC ACID TABLET (FP) PO SCH (10:07)
[2020-05-08] MEDS: cloNIDine HCL 0.1 MG TABLET PO PRN ×3 (10:08→20:01)
[2020-05-08 11:56] LABS: POTASSIUM 4.5 mmol/L (3.5-5.1)
[2020-05-08 12:01] LABS: HEMATOCRIT 38.4 % (35.4-49); HEMOGLOBIN 13.1 GM/dL (11.7-16.9); MCH 29.6 pg (25.7-33.7); MCHC 34.1 g/dl (32.0-35.9); MEAN CELL VOLUME 86.8 fl (80-96); MEAN PLT VOLUME 9.3 fl (7.5-11.1); PLATELET COUNT 231 K/MM3 (134-434); RBC 4.42 M/mm3 (4.00-5.60); RDW 14.1 % (11.9-15.9); WHITE BLOOD COUNT 7.4 K/mm3 (4.0-10.0)
[2020-05-08 12:03] LABS: ALBUMIN 3.4 g/dl (3.4-5.0)
[2020-05-08] MEDS: VENLAFAXINE HCL 75 MG E.R. CAPSULES PO SCH (12:03)
[2020-05-08 12:04] LABS: CALCIUM 8.4 mg/dL (8.5-10.1)
[2020-05-08 12:06] LABS: CREATININE 0.9 mg/dL (0.55-1.3)
[2020-05-08 12:08] LABS: BILIRUBIN,TOTAL 0.7 mg/dL (0.2-1)
[2020-05-08 12:10] LABS: TOT PROT 6.7 g/dl (6.4-8.2)
[2020-05-08] MEDS: hydrOXYzine PAMOATE 25 MG CAPSULE (FP) PO PRN (17:24)
[2020-05-08] MEDS: MELATONIN 5 MG TABLETS PO SCH (22:53)
[2020-05-08] MEDS: THIAMINE HCL 100 MG TABLET (FP) PO SCH (22:53)
[2020-05-09] MEDS: diazePAM 5 MG TABLET PO PRN ×5 (02:58→21:03)
[2020-05-09] MEDS ORDERED: METHADONE HCL 10 MG TABLET (FOR DETOX USE ONLY) PO ONE (10:00)
[2020-05-09] MEDS: VENLAFAXINE HCL 75 MG E.R. CAPSULES PO SCH (10:25)
[2020-05-09] MEDS: PRENATAL VITAMINS W/ FOLIC ACID TABLET (FP) PO SCH (10:25)
[2020-05-09] MEDS: NICOTINE 21 MG/24 HOURS TOPICAL PATCH TD SCH (10:25)
[2020-05-09] MEDS: cloNIDine HCL 0.1 MG TABLET PO PRN ×2 (12:55→17:50)
[2020-05-09] MEDS: MELATONIN 5 MG TABLETS PO SCH (21:03)
[2020-05-09] MEDS: METHOCARBAMOL 500 MG TABLET PO PRN (21:03)
[2020-05-09] MEDS: THIAMINE HCL 100 MG TABLET (FP) PO SCH (21:03)
[2020-05-10] MEDS: hydrOXYzine PAMOATE 25 MG CAPSULE (FP) PO PRN (01:46)
[2020-05-10] MEDS: diazePAM 5 MG TABLET PO PRN ×2 (01:46→08:53)
[2020-05-10] MEDS ORDERED: METHADONE HCL 5 MG TABLET (FOR DETOX USE ONLY) ONE (08:49)
[2020-05-10] MEDS ORDERED: METHADONE HCL 10 MG TABLET (FOR DETOX USE ONLY) ONE (08:49)
[2020-05-10] MEDS ORDERED: METHADONE (DETOX) 10 MG, METHADONE (DETOX) 5 MG PO ONE (10:00)
[2020-05-10] MEDS: VENLAFAXINE HCL 75 MG E.R. CAPSULES PO SCH (10:51)
[2020-05-10] MEDS: NICOTINE 21 MG/24 HOURS TOPICAL PATCH TD SCH (10:52)
[2020-05-10] MEDS: METHOCARBAMOL 500 MG TABLET PO PRN (10:52)
[2020-05-10] MEDS: PRENATAL VITAMINS W/ FOLIC ACID TABLET (FP) PO SCH (10:52)
[2020-05-10 13:17] VITALS: BP 107/64; PULSE 91; TEMP 97.1
[2020-05-10] MEDS ORDERED: PSYLLIUM 5.85 GM PACKET PO SCH (14:00)
[2020-05-10] MEDS ORDERED: DOCUSATE SODIUM 100 MG CAPSULE (FP) PO SCH (22:00)
[2020-05-11] MEDS ORDERED: METHADONE HCL 10 MG TABLET (FOR DETOX USE ONLY) PO ONE (10:00)
[2020-05-12] MEDS ORDERED: METHADONE HCL 5 MG TABLET (FOR DETOX USE ONLY) PO ONE (06:00)
== END 2020-05-10 13:58 | disposition left against medical advice (07) | DRG 770 ==
LOC: YASAS 01:08 → Y3N 02:15
PROVIDERS: ADMIT Allergy & Immunology; ATTEND Allergy & Immunology
PROC: HZ2ZZZZ Detoxification Services for Substance Abuse Treatment (ICD-10-PCS; principal; 2020-05-07)
DX: F11.23 Opioid dependence with withdrawal (principal); F13.20 Sedative, hypnotic or anxiolytic dependence, uncomplicated; F17.210 Nicotine dependence, cigarettes, uncomplicated; F19.24 Other psychoactive substance dependence with psychoactive substance-induced mood disorder; F32.9 Major depressive disorder, single episode, unspecified; J45.20 Mild intermittent asthma, uncomplicated; Z87.81 Personal history of (healed) traumatic fracture; Z98.890 Other specified postprocedural states; Z59.0 Homelessness; Z56.0 Unemployment, unspecified; Z88.1 Allergy status to other antibiotic agents; Z88.8 Allergy status to other drugs, medicaments and biological substances; W19.XXXA Unspecified fall, initial encounter; Y93.89 Activity, other specified; Y92.231 Patient bathroom in hospital as the place of occurrence of the external cause; Y99.8 Other external cause status
CPT/HCPCS: 36415; 80053; 85027; 86780; C9803; J0735; U0003